=== PATIENT | female | born 1955 | race Caucasian/White ===

== ENCOUNTER → 2016-07-23 | Outpatient (CLI) | payer BC ==
[~2016-07-23] MED LIST: ATARAX,VISTARIL10 MG PO; CELEXA20 MG PO; COLACE100 MG PO; DIFLUCAN150 MG PO; ESTRACE0.5 MG PO; ESTRADIOL0.5 MG PO; FERROUS SULFATE1 GRA; FLEXERIL5 MG PO; IRON TABLETS325 MG PO; KEFLEX500 MG PO; MOTRIN800 MG PO; PRENATAL1 TA4 PO; PROTONIX40 MG PO; STOOL SOFTENER100 MG PO; TRAMADOL HCL50 MG PO; VITAMIN B PO; ZANTAC 300300 MG PO; ZANTAC150 MG PO
== END ==
LOC: RAD 14:43
DX: M25.462 Effusion, left knee (principal)

== ENCOUNTER → 2017-02-26 | Outpatient (CLI) | payer BC ==
--- NOTE | ~2017-02-26 | PF ---
[place], [place] PULMONARY FUNCTION TEST [id number] UNIT #: [id number] ROOM: DOCTOR: GIOVANNA MONROY MD BIRTHDATE: [birth year] DOS: 02/26/2017 ORDERED BY: Jessee Zamorano, nurse practitioner. HISTORY: The patient reported as 61-year-old female, height of 67 inches, weight of 172 pounds. The testing was done for assessment of symptoms of shortness of breath with productive cough. Tobacco use was noted 46 pack years of tobacco use for the patient. The patient smoked 2 packs of cigarettes per day, which were discontinued 20 years ago. SPIROMETRY: The FVC was recorded 3.00 liters at 81% predicted value normal. FEV1 recorded 2.40 liters at 84% predicted value normal as well. Ratio of FEV1/FVC recorded 80%. No postbronchodilator changes for this patient were noted, which is significant. Flow volume loop was noted normal. The patient's lung volume, thoracic gas for spirometry was noted normal. The patient's lung volume, thoracic gas volume recorded at 60%, residual volume 50%, total lung capacity of 83%. Lung volumes were noted normal. The patient's lung diffusion recorded normal at 74%. The patient's airway resistance and specific conductance was noted normal. FINAL IMPRESSION: Normal pulmonary function test was noted. GIOVANNA POWERS MD CM:PFREPORT:PULMONARY FUNCTION TEST [id number] GIOVANNA MAE MD
== END | disposition home or self-care (01) ==
LOC: CP 12:38
DX: R06.02 Shortness of breath (principal); R05 Cough; Z72.0 Tobacco use

== ENCOUNTER → 2017-04-12 | Outpatient (CLI) | payer BC | END | disposition home or self-care (01) | LOC: CARD 10:13 | DX: R06.02 Shortness of breath (principal) ==

== ENCOUNTER 2017-05-20 18:55 | Emergency (ER) | payer BC ==
[~2017-05-20] VITALS: Ht 162.5 cm; Wt 73.5 kg
[2017-05-20] MEDS ORDERED: AUGMENTIN 875875 MG PO (19:43)
== END 2017-05-20 19:53 | disposition home or self-care (01) ==
LOC: ED 18:55
DX: S01.511A Laceration without foreign body of lip, initial encounter (principal); Z79.899 Other long term (current) drug therapy; W54.0XXA Bitten by dog, initial encounter; Y93.89 Activity, other specified; Y92.89 Other specified places as the place of occurrence of the external cause; Y99.8 Other external cause status

== ENCOUNTER 2017-05-31 17:00 | Emergency (ER) | payer OTHER, BC ==
[~2017-05-31] VITALS: Wt 77.1 kg
[~2017-05-31 17:00] MED LIST changes: +AUGMENTIN 875875 MG PO
== END 2017-05-31 19:16 | disposition home or self-care (01) ==
LOC: ED 17:00
DX: Z23 Encounter for immunization (principal); J02.9 Acute pharyngitis, unspecified; Z90.49 Acquired absence of other specified parts of digestive tract; Z90.710 Acquired absence of both cervix and uterus; Z98.890 Other specified postprocedural states; Z79.899 Other long term (current) drug therapy; Z88.6 Allergy status to analgesic agent

== ENCOUNTER 2017-06-03 18:37 | Emergency (ER) | payer OTHER, BC ==
[~2017-06-03] VITALS: Ht 160 cm; Wt 77.1 kg
== END 2017-06-03 19:08 | disposition home or self-care (01) ==
LOC: ED 18:37
DX: Z23 Encounter for immunization (principal); Z79.899 Other long term (current) drug therapy; Z90.49 Acquired absence of other specified parts of digestive tract; Z90.710 Acquired absence of both cervix and uterus; Z98.890 Other specified postprocedural states; Z88.6 Allergy status to analgesic agent

== ENCOUNTER 2017-06-07 19:08 | Emergency (ER) | payer OTHER, BC ==
[~2017-06-07] VITALS: Ht 165.1 cm; Wt 77.1 kg
== END 2017-06-07 19:31 | disposition home or self-care (01) ==
LOC: ED 19:08
DX: Z23 Encounter for immunization (principal); Z90.49 Acquired absence of other specified parts of digestive tract; Z90.710 Acquired absence of both cervix and uterus; Z98.890 Other specified postprocedural states; Z79.899 Other long term (current) drug therapy; Z88.6 Allergy status to analgesic agent

== ENCOUNTER 2017-06-14 20:52 | Emergency (ER) | payer OTHER, BC ==
[~2017-06-14] VITALS: Ht 165.1 cm; Wt 77.1 kg
== END 2017-06-14 21:00 | disposition home or self-care (01) ==
LOC: ED 20:52
DX: Z23 Encounter for immunization (principal); Z90.49 Acquired absence of other specified parts of digestive tract; Z90.710 Acquired absence of both cervix and uterus; Z79.899 Other long term (current) drug therapy; Z88.6 Allergy status to analgesic agent

== ENCOUNTER → 2018-04-16 | Outpatient (CLI) | payer OTHER ==
[2018-04-16 15:59] LABS: PTH INTACT 51.6 pg/mL (18.5-88.0); VITAMIN D, 25-HYDROXY 22.5 ng/mL (30-100)
== END | disposition home or self-care (01) ==
LOC: LAB 12:51 → US 13:00
PROVIDERS: Nurse Practitioner Family
DX: I65.23 Occlusion and stenosis of bilateral carotid arteries (principal); E78.5 Hyperlipidemia, unspecified; K21.9 Gastro-esophageal reflux disease without esophagitis; E83.51 Hypocalcemia; F32.9 Major depressive disorder, single episode, unspecified; E11.9 Type 2 diabetes mellitus without complications; R41.3 Other amnesia

== ENCOUNTER → 2018-06-12 | Outpatient (CLI) | payer OTHER ==
[~2018-06-12] MED LIST changes: +B-121000 MCG PO; +B121000 MCG/1 PO; +BIOTIN1000 MC1 PO; +CETIRIZINE10 MG PO; +DOXYCYCLINE100 M3 PO; +GINKGO60 MG PO; +LEVOFLOXACIN500 MG PO; +OMEPRAZOLE D/R20 MG PO; +TESSALON PERLE100 MG PO; +ZOCOR10 MG PO
== END | disposition home or self-care (01) ==
LOC: MAMMO 10:40
DX: Z12.31 Encounter for screening mammogram for malignant neoplasm of breast (principal); Z12.12 Encounter for screening for malignant neoplasm of rectum; R94.8 Abnormal results of function studies of other organs and systems; G89.29 Other chronic pain; M25.511 Pain in right shoulder; Z87.891 Personal history of nicotine dependence

== ENCOUNTER → 2018-11-04 | Outpatient (CLI) | payer OTHER | END | disposition home or self-care (01) | LOC: RAD 19:19 | DX: J40 Bronchitis, not specified as acute or chronic (principal); R06.2 Wheezing; R49.0 Dysphonia ==

== ENCOUNTER → 2018-12-24 | Outpatient (CLI) | payer OTHER | END | disposition home or self-care (01) | LOC: RAD 19:06 | DX: K62.5 Hemorrhage of anus and rectum (principal); K59.00 Constipation, unspecified; Z90.49 Acquired absence of other specified parts of digestive tract; Z90.710 Acquired absence of both cervix and uterus ==

== ENCOUNTER 2019-03-07 11:28 | Emergency (ER) | payer OTHER ==
[~2019-03-07] VITALS: Ht 165.1 cm; Wt 72.6 kg
== END 2019-03-07 14:26 | disposition home or self-care (01) ==
LOC: ED 11:28
DX: S00.83XA Contusion of other part of head, initial encounter (principal); M79.642 Pain in left hand; Z88.8 Allergy status to other drugs, medicaments and biological substances; Z79.2 Long term (current) use of antibiotics; Z79.899 Other long term (current) drug therapy; Z90.710 Acquired absence of both cervix and uterus; Z90.49 Acquired absence of other specified parts of digestive tract; W18.39XA Other fall on same level, initial encounter; Y93.89 Activity, other specified; Y92.098 Other place in other non-institutional residence as the place of occurrence of the external cause; Y99.8 Other external cause status

== ENCOUNTER → 2019-09-29 | Outpatient (CLI) | payer OTHER | END | disposition home or self-care (01) | LOC: RAD 08:45 | DX: M47.817 Spondylosis without myelopathy or radiculopathy, lumbosacral region (principal); M85.88 Other specified disorders of bone density and structure, other site ==

== ENCOUNTER 2021-05-13 19:10 | Emergency (ER) | payer OTHER ==
[2021-05-13] MEDS ORDERED: NAPROXEN250 MG PO (20:14)
[2021-05-13] MEDS ORDERED: METHOCARBAMOL750 M1 PO (20:14)
== END 2021-05-13 20:31 | disposition home or self-care (01) ==
LOC: ED 19:10
DX: S29.011A Strain of muscle and tendon of front wall of thorax, initial encounter (principal); Z88.8 Allergy status to other drugs, medicaments and biological substances; Z79.899 Other long term (current) drug therapy; Z90.49 Acquired absence of other specified parts of digestive tract; Z90.89 Acquired absence of other organs; Z90.710 Acquired absence of both cervix and uterus; X50.0XXA Overexertion from strenuous movement or load, initial encounter; Y93.89 Activity, other specified; Y92.89 Other specified places as the place of occurrence of the external cause; Y99.8 Other external cause status

== ENCOUNTER → 2021-11-23 | Outpatient (CLI) | payer OTHER ==
[~2021-11-23] MED LIST changes: +METHOCARBAMOL750 M1 PO; +NAPROXEN250 MG PO
== END | disposition home or self-care (01) ==
LOC: MAMMO 11-02 11:00
PROVIDERS: ATTEND Nurse Practitioner Family
DX: Z12.31 Encounter for screening mammogram for malignant neoplasm of breast (principal); N64.9 Disorder of breast, unspecified

== ENCOUNTER 2021-12-08 17:00 | Emergency (ER) | payer OTHER ==
[~2021-12-08] VITALS: Ht 172.7 cm; Wt 73.9 kg
[2021-12-08] MEDS ORDERED: HYDROCODONE-AC1 EAC1 PO (21:26)
== END 2021-12-08 21:25 | disposition home or self-care (01) ==
LOC: ED 17:00
DX: S62.101A Fracture of unspecified carpal bone, right wrist, initial encounter for closed fracture (principal); S00.83XA Contusion of other part of head, initial encounter; Z88.8 Allergy status to other drugs, medicaments and biological substances; Z79.899 Other long term (current) drug therapy; Z90.710 Acquired absence of both cervix and uterus; Z90.49 Acquired absence of other specified parts of digestive tract; Z90.89 Acquired absence of other organs; Z98.890 Other specified postprocedural states; W18.39XA Other fall on same level, initial encounter; Y93.89 Activity, other specified; Y92.89 Other specified places as the place of occurrence of the external cause; Y99.8 Other external cause status

== ENCOUNTER → 2021-12-22 | Outpatient (CLI) | payer OTHER ==
[~2021-12-22] MED LIST changes: +HYDROCODONE-AC1 EAC1 PO
== END | disposition home or self-care (01) ==
LOC: ORTHO 01:07
PROVIDERS: ATTEND Orthopaedic Surgery
DX: S52.531D Colles' fracture of right radius, subsequent encounter for closed fracture with routine healing (principal); X58.XXXD Exposure to other specified factors, subsequent encounter

== ENCOUNTER → 2021-12-29 | Outpatient (CLI) | payer OTHER | END | disposition home or self-care (01) | LOC: ORTHO 01:07 | PROVIDERS: ATTEND Orthopaedic Surgery | DX: S52.531D Colles' fracture of right radius, subsequent encounter for closed fracture with routine healing (principal); X58.XXXD Exposure to other specified factors, subsequent encounter ==

== ENCOUNTER → 2022-01-08 | Outpatient (CLI) | payer OTHER | END | disposition home or self-care (01) | LOC: RAD 01-01 13:30 | PROVIDERS: ATTEND Orthopaedic Surgery | DX: S52.531D Colles' fracture of right radius, subsequent encounter for closed fracture with routine healing (principal); M85.851 Other specified disorders of bone density and structure, right thigh; M81.0 Age-related osteoporosis without current pathological fracture; X58.XXXD Exposure to other specified factors, subsequent encounter ==

== ENCOUNTER → 2022-01-22 | Outpatient (CLI) | payer OTHER | END | disposition home or self-care (01) | LOC: ORTHO 13:25 | PROVIDERS: ATTEND Orthopaedic Surgery | DX: S52.531D Colles' fracture of right radius, subsequent encounter for closed fracture with routine healing (principal); M19.031 Primary osteoarthritis, right wrist; X58.XXXD Exposure to other specified factors, subsequent encounter ==

== ENCOUNTER → 2022-04-27 | Outpatient (CLI) | payer OTHER ==
[2022-04-27 10:54] LABS: BASO # 0.1 10*3/uL (0.0-0.1); BASO % 0.9 % (0.0-1.0); EOS # 0.3 10*3/uL (0.0-0.4); EOS % 4.6 % (1.0-4.0); HEMATOCRIT 42.7 % (37.0-47.0); LYMPH # 1.5 10*3/uL (1.3-4.4); MEAN CELL VOLUME 92.4 fl (81.0-99.0); MEAN CORPUSCULAR HGB 30.5 pg (27.0-31.0); MONO # 0.7 10*3/uL (0.1-1.0); MONO % 12.1 % (3.0-9.0); NEUT # 3.1 10*3/uL (2.3-7.9); NEUT % 55.2 % (47.0-73.0); PLATELET COUNT AUTOMATED 264 10*3/uL (130-400); RED BLOOD COUNT 4.62 10*6/uL (4.10-5.10); RED CELL DISTRI WIDTH 12.8 % (0-14.5); WHITE BLOOD COUNT 5.6 10*3/uL (4.8-10.8)
[2022-04-27 11:09] LABS: ALKALINE PHOSPHATASE 78 U/L (46-116); BUN 6 mg/dl (9-23); CHLORIDE 103 mmol/L (98-107); CHOLESTEROL 207 mg/dL (<200); LDL CHOLESTEROL 121 mg/dL (9-159); POTASSIUM 3.9 mmol/L (3.4-5.1); SGPT/ALT 17 U/L (10-49); TOTAL PROTEIN 6.5 gm/dL (6.0-8.0); TRIGLYCERIDES 75 mg/dl (<150)
== END | disposition home or self-care (01) ==
LOC: LAB 09:56
PROVIDERS: ATTEND Nurse Practitioner Family
DX: E78.5 Hyperlipidemia, unspecified (principal); G89.29 Other chronic pain; K21.9 Gastro-esophageal reflux disease without esophagitis; M79.2 Neuralgia and neuritis, unspecified; Z79.899 Other long term (current) drug therapy

== ENCOUNTER → 2022-07-23 | Outpatient (CLI) | payer OTHER ==
[2022-07-23 10:50] LABS: BASO # 0.1 10*3/uL (0.0-0.1); EOS # 0.2 10*3/uL (0.0-0.4); EOS % 4.1 % (1.0-4.0); HEMATOCRIT 42.2 % (37.0-47.0); LYMPH # 1.7 10*3/uL (1.3-4.4); LYMPH % 29.4 % (27.0-41.0); MEAN CELL VOLUME 94.2 fl (81.0-99.0); MEAN CORPUSCULAR HGB 30.4 pg (27.0-31.0); MEAN CORPUSCULAR HGB CONC 32.2 g/dl (33.0-37.0); MEAN PLATELET VOLUME 9.9 fl (9.6-12.3); MONO # 0.8 10*3/uL (0.1-1.0); MONO % 13.4 % (3.0-9.0); NEUT # 3.1 10*3/uL (2.3-7.9); NEUT % 51.8 % (47.0-73.0); PLATELET COUNT AUTOMATED 296 10*3/uL (130-400); RED BLOOD COUNT 4.48 10*6/uL (4.10-5.10); RED CELL DISTRI WIDTH 12.3 % (0-14.5); WHITE BLOOD COUNT 5.9 10*3/uL (4.8-10.8)
[2022-07-23 12:11] LABS: ALKALINE PHOSPHATASE 78 U/L (46-116); CHLORIDE 106 mmol/L (98-107); CHOLESTEROL 186 mg/dL (<200); LDL CHOLESTEROL 94 mg/dL (9-159); POTASSIUM 3.9 mmol/L (3.4-5.1); SGPT/ALT 13 U/L (10-49); TOTAL PROTEIN 6.5 gm/dL (6.0-8.0); TRIGLYCERIDES 134 mg/dl (<150)
[2022-07-23 12:12] LABS: BUN < 5 mg/dl (9-23)
== END | disposition home or self-care (01) ==
LOC: LAB 10:20
PROVIDERS: ATTEND Nurse Practitioner Family
DX: E78.5 Hyperlipidemia, unspecified (principal); K21.9 Gastro-esophageal reflux disease without esophagitis; M79.2 Neuralgia and neuritis, unspecified; F32.9 Major depressive disorder, single episode, unspecified; D64.9 Anemia, unspecified; E55.9 Vitamin D deficiency, unspecified; G89.29 Other chronic pain

== ENCOUNTER 2022-09-26 01:47 | Emergency (ER) | payer OTHER ==
[~2022-09-26] VITALS: Wt 74.4 kg
== END 2022-09-26 04:20 | disposition home or self-care (01) ==
LOC: ED 01:47
DX: S00.03XA Contusion of scalp, initial encounter (principal); S09.90XA Unspecified injury of head, initial encounter; K21.9 Gastro-esophageal reflux disease without esophagitis; J45.909 Unspecified asthma, uncomplicated; F32.A Depression, unspecified; E78.5 Hyperlipidemia, unspecified; Z88.5 Allergy status to narcotic agent; Z90.710 Acquired absence of both cervix and uterus; Z90.49 Acquired absence of other specified parts of digestive tract; Z90.89 Acquired absence of other organs; Z98.890 Other specified postprocedural states; W22.8XXA Striking against or struck by other objects, initial encounter; Y93.89 Activity, other specified; Y92.009 Unspecified place in unspecified non-institutional (private) residence as the place of occurrence of the external cause; Y99.8 Other external cause status

== ENCOUNTER 2022-10-23 20:10 | Emergency (ER) | payer OTHER ==
[~2022-10-23] VITALS: Ht 167.6 cm; Wt 72.6 kg
[2022-10-23 21:11] LABS: BILIRUBIN Negative (Negative); BLOOD Negative (Negative); CLARITY Clear (Clear); COLOR Yellow (Yellow); GLUCOSE Negative (Negative); KETONE Negative (Negative); LEUKO ESTERASE Negative (Negative); NITRITE Negative (Negative); PH 5.5 (4.5-8.0); SPECIFIC GRAVITY <= 1.005 (1.001-1.030); UROBILINOGEN 0.2 E.U./dl (0.0-1.0)
[2022-10-23 21:24] LABS: BACTERIA TRACE; EPITHELIAL CELLS 0-2; RBC 0-2 rbc/hpf (0-2); WBC 0-2 wbc/hpf (0-5)
[2022-10-23 21:29] LABS: BASO % 0.6 % (0.0-1.0); EOS # 0.3 10*3/uL (0.0-0.4); EOS % 3.9 % (1.0-4.0); HEMATOCRIT 40.8 % (37.0-47.0); LYMPH # 2.3 10*3/uL (1.3-4.4); LYMPH % 35.1 % (27.0-41.0); MEAN CELL VOLUME 93.2 fl (81.0-99.0); MEAN CORPUSCULAR HGB 30.8 pg (27.0-31.0); MEAN CORPUSCULAR HGB CONC 33.1 g/dl (33.0-37.0); MEAN PLATELET VOLUME 10.5 fl (9.6-12.3); MONO # 0.7 10*3/uL (0.1-1.0); MONO % 10.8 % (3.0-9.0); NEUT # 3.3 10*3/uL (2.3-7.9); NEUT % 49.4 % (47.0-73.0); PLATELET COUNT AUTOMATED 266 10*3/uL (130-400); RED BLOOD COUNT 4.38 10*6/uL (4.10-5.10); RED CELL DISTRI WIDTH 12.2 % (0-14.5); WHITE BLOOD COUNT 6.7 10*3/uL (4.8-10.8)
[2022-10-23 21:52] LABS: ALKALINE PHOSPHATASE 81 U/L (46-116); BUN 6 mg/dl (9-23); CHLORIDE 103 mmol/L (98-107); LIPASE 45 U/L (12-53); POTASSIUM 3.3 mmol/L (3.4-5.1); SGPT/ALT 13 U/L (10-49); TOTAL PROTEIN 6.3 gm/dL (6.0-8.0)
== END 2022-10-24 01:24 | disposition left against medical advice (07) ==
LOC: ED 20:10
PROVIDERS: Physician Assistant Medical
DX: R10.31 Right lower quadrant pain (principal); K21.9 Gastro-esophageal reflux disease without esophagitis; F32.A Depression, unspecified; Z88.8 Allergy status to other drugs, medicaments and biological substances; Z90.710 Acquired absence of both cervix and uterus; Z90.49 Acquired absence of other specified parts of digestive tract; Z90.89 Acquired absence of other organs; Z98.890 Other specified postprocedural states

== ENCOUNTER 2022-11-03 11:22 | Emergency (ER) | payer MEDICARE, OTHER ==
[~2022-11-03] VITALS: Ht 162.5 cm; Wt 72.6 kg
[2022-11-03] MEDS ORDERED: GABAPENTIN100 M2 PO (11:37)
== END 2022-11-03 12:38 | disposition home or self-care (01) ==
LOC: ED 11:22
DX: L23.7 Allergic contact dermatitis due to plants, except food (principal); K21.9 Gastro-esophageal reflux disease without esophagitis; F32.A Depression, unspecified; Z88.8 Allergy status to other drugs, medicaments and biological substances; Z90.89 Acquired absence of other organs; Z90.49 Acquired absence of other specified parts of digestive tract; Z90.710 Acquired absence of both cervix and uterus; Z98.890 Other specified postprocedural states

== ENCOUNTER → 2022-12-19 | Outpatient (CLI) | payer MEDICARE ==
[~2022-12-19] MED LIST changes: +GABAPENTIN100 M2 PO
[2022-12-19 17:34] LABS: BASO % 0.7 % (0.0-1.0); EOS # 0.2 10*3/uL (0.0-0.4); EOS % 3.3 % (1.0-4.0); HEMATOCRIT 40.7 % (37.0-47.0); LYMPH # 1.9 10*3/uL (1.3-4.4); LYMPH % 34.7 % (27.0-41.0); MEAN CORPUSCULAR HGB 30.5 pg (27.0-31.0); MEAN CORPUSCULAR HGB CONC 32.4 g/dl (33.0-37.0); MEAN PLATELET VOLUME 10.2 fl (9.6-12.3); MONO # 0.6 10*3/uL (0.1-1.0); NEUT # 2.8 10*3/uL (2.3-7.9); NEUT % 50.1 % (47.0-73.0); PLATELET COUNT AUTOMATED 264 10*3/uL (130-400); RED BLOOD COUNT 4.33 10*6/uL (4.10-5.10); RED CELL DISTRI WIDTH 12.4 % (0-14.5); WHITE BLOOD COUNT 5.5 10*3/uL (4.8-10.8)
[2022-12-19 18:08] LABS: ALKALINE PHOSPHATASE 77 U/L (46-116); BUN 5 mg/dl (9-23); CHLORIDE 109 mmol/L (98-107); CHOLESTEROL 188 mg/dL (<200); LDL CHOLESTEROL 86 mg/dL (9-159); POTASSIUM 3.9 mmol/L (3.4-5.1); SGPT/ALT 12 U/L (10-49); TRIGLYCERIDES 199 mg/dl (<150)
== END | disposition home or self-care (01) ==
LOC: LAB 17:14
PROVIDERS: ATTEND Nurse Practitioner Family
DX: E78.5 Hyperlipidemia, unspecified (principal); K21.9 Gastro-esophageal reflux disease without esophagitis; M79.2 Neuralgia and neuritis, unspecified; G89.29 Other chronic pain; E55.9 Vitamin D deficiency, unspecified; F32.9 Major depressive disorder, single episode, unspecified

== ENCOUNTER → 2023-05-17 | Outpatient (CLI) | payer OTHER ==
[2023-05-17 16:37] LABS: BASO # 0.1 10*3/uL (0.0-0.1); BASO % 0.8 % (0.0-1.0); EOS # 0.3 10*3/uL (0.0-0.4); EOS % 4.6 % (1.0-4.0); HEMATOCRIT 43.1 % (37.0-47.0); LYMPH # 2.1 10*3/uL (1.3-4.4); LYMPH % 32.8 % (27.0-41.0); MEAN CORPUSCULAR HGB 30.1 pg (27.0-31.0); MEAN CORPUSCULAR HGB CONC 31.3 g/dl (33.0-37.0); MEAN PLATELET VOLUME 10.1 fl (9.6-12.3); MONO # 0.7 10*3/uL (0.1-1.0); MONO % 10.8 % (3.0-9.0); NEUT # 3.2 10*3/uL (2.3-7.9); NEUT % 50.8 % (47.0-73.0); PLATELET COUNT AUTOMATED 292 10*3/uL (130-400); RED BLOOD COUNT 4.49 10*6/uL (4.10-5.10); RED CELL DISTRI WIDTH 12.5 % (0-14.5); WHITE BLOOD COUNT 6.3 10*3/uL (4.8-10.8)
[2023-05-17 17:02] LABS: ALKALINE PHOSPHATASE 83 U/L (46-116); BUN 5 mg/dl (9-23); CHLORIDE 106 mmol/L (98-107); CHOLESTEROL 205 mg/dL (<200); LDL CHOLESTEROL 107 mg/dL (9-159); POTASSIUM 3.4 mmol/L (3.4-5.1); SGPT/ALT 12 U/L (5-49); TOTAL PROTEIN 6.6 gm/dL (6.0-8.0); TRIGLYCERIDES 172 mg/dl (<150)
== END | disposition home or self-care (01) ==
LOC: LAB 16:22
PROVIDERS: ATTEND Nurse Practitioner Family
DX: E78.5 Hyperlipidemia, unspecified (principal); E55.9 Vitamin D deficiency, unspecified; K21.9 Gastro-esophageal reflux disease without esophagitis; G89.29 Other chronic pain; F32.9 Major depressive disorder, single episode, unspecified

== ENCOUNTER → 2023-09-02 | Outpatient (CLI) | payer OTHER ==
[2023-09-02 12:48] LABS: BASO # 0.1 10*3/uL (0.0-0.1); BASO % 0.9 % (0.0-1.0); EOS # 0.2 10*3/uL (0.0-0.4); EOS % 3.3 % (1.0-4.0); HEMATOCRIT 41.9 % (37.0-47.0); LYMPH # 1.9 10*3/uL (1.3-4.4); LYMPH % 32.6 % (27.0-41.0); MEAN CELL VOLUME 94.4 fl (81.0-99.0); MEAN CORPUSCULAR HGB 30.4 pg (27.0-31.0); MEAN CORPUSCULAR HGB CONC 32.2 g/dl (33.0-37.0); MEAN PLATELET VOLUME 10.3 fl (9.6-12.3); MONO # 0.7 10*3/uL (0.1-1.0); MONO % 11.5 % (3.0-9.0); NEUT % 51.4 % (47.0-73.0); PLATELET COUNT AUTOMATED 275 10*3/uL (130-400); RED BLOOD COUNT 4.44 10*6/uL (4.10-5.10); RED CELL DISTRI WIDTH 12.4 % (0-14.5); WHITE BLOOD COUNT 5.7 10*3/uL (4.8-10.8)
[2023-09-02 13:18] LABS: ALKALINE PHOSPHATASE 79 U/L (46-116); BUN 6 mg/dl (9-23); CHLORIDE 105 mmol/L (98-107); CHOLESTEROL 219 mg/dL (<200); LDL CHOLESTEROL 124 mg/dL (9-159); POTASSIUM 3.7 mmol/L (3.4-5.1); SGPT/ALT 13 U/L (5-49); TOTAL PROTEIN 6.4 gm/dL (6.0-8.0); TRIGLYCERIDES 91 mg/dl (<150)
== END | disposition home or self-care (01) ==
LOC: LAB 11:59
PROVIDERS: ATTEND Nurse Practitioner Family
DX: K21.9 Gastro-esophageal reflux disease without esophagitis (principal); E78.5 Hyperlipidemia, unspecified; R41.3 Other amnesia

== ENCOUNTER → 2023-12-05 | Outpatient (CLI) | payer OTHER, MEDICAID ==
[2023-12-05 11:14] LABS: HEMATOCRIT 41.7 % (37.0-47.0); MEAN CELL VOLUME 92.7 fl (81.0-99.0); MEAN CORPUSCULAR HGB 30.2 pg (27.0-31.0); MEAN CORPUSCULAR HGB CONC 32.6 g/dl (33.0-37.0); WHITE BLOOD COUNT 5.7 10*3/uL (4.8-10.8)
[2023-12-05 11:15] LABS: BASO # 0.1 10*3/uL (0.0-0.1); BASO % 0.9 % (0.0-1.0); EOS # 0.2 10*3/uL (0.0-0.4); EOS % 3.7 % (1.0-4.0); LYMPH # 1.4 10*3/uL (1.3-4.4); LYMPH % 25.2 % (27.0-41.0); MEAN PLATELET VOLUME 10.7 fl (9.6-12.3); MONO # 0.6 10*3/uL (0.1-1.0); MONO % 11.3 % (3.0-9.0); NEUT # 3.3 10*3/uL (2.3-7.9); NEUT % 58.5 % (47.0-73.0); PLATELET COUNT AUTOMATED 267 10*3/uL (130-400); RED CELL DISTRI WIDTH 12.4 % (0-14.5)
[2023-12-05 11:43] LABS: ALKALINE PHOSPHATASE 76 U/L (46-116); BUN 6 mg/dl (9-23); CHLORIDE 106 mmol/L (98-107); CHOLESTEROL 203 mg/dL (<200); LDL CHOLESTEROL 107 mg/dL (9-159); POTASSIUM 3.5 mmol/L (3.4-5.1); SGPT/ALT 10 U/L (5-49); TOTAL PROTEIN 6.3 gm/dL (6.0-8.0); TRIGLYCERIDES 88 mg/dl (<150)
[2023-12-05 11:54] LABS: BILIRUBIN Negative (Negative); BLOOD Negative (Negative); CLARITY Clear (Clear); COLOR Yellow (Yellow); GLUCOSE Negative (Negative); KETONE Negative (Negative); LEUKO ESTERASE Negative (Negative); NITRITE Negative (Negative); PH 5.5 (4.5-8.0); UROBILINOGEN 0.2 E.U./dl (0.0-1.0)
[2023-12-05 12:23] LABS: HYALINE CAST TNTC; RBC 0-2 rbc/hpf (0-2); WBC 0-2 wbc/hpf (0-5)
== END | disposition home or self-care (01) ==
LOC: LAB 10:26
PROVIDERS: ATTEND Nurse Practitioner Family
DX: K21.9 Gastro-esophageal reflux disease without esophagitis (principal); E87.6 Hypokalemia; F32.9 Major depressive disorder, single episode, unspecified; M54.16 Radiculopathy, lumbar region; R63.4 Abnormal weight loss; K22.2 Esophageal obstruction; Z79.899 Other long term (current) drug therapy

== ENCOUNTER → 2023-12-31 | Outpatient (CLI) | payer OTHER, MEDICAID | END | disposition home or self-care (01) | LOC: RAD 10:28 | PROVIDERS: ATTEND Nurse Practitioner Family | DX: K59.00 Constipation, unspecified (principal) ==

== ENCOUNTER → 2024-01-29 | Outpatient (CLI) | payer OTHER, MEDICAID | END | disposition home or self-care (01) | LOC: LAB 13:51 | PROVIDERS: ATTEND Nurse Practitioner Family | DX: E61.1 Iron deficiency (principal); K59.00 Constipation, unspecified ==

== ENCOUNTER → 2024-04-03 | Outpatient (CLI) | payer MEDICARE, MEDICAID | END | disposition home or self-care (01) | LOC: RAD 00:23 | PROVIDERS: ATTEND Internal Medicine | DX: Z13.820 Encounter for screening for osteoporosis (principal); M85.88 Other specified disorders of bone density and structure, other site; Z78.0 Asymptomatic menopausal state ==

== ENCOUNTER → 2024-10-12 | Outpatient (CLI) | payer OTHER | END | disposition home or self-care (01) | LOC: RAD 11:52 | PROVIDERS: ATTEND Internal Medicine | DX: M47.816 Spondylosis without myelopathy or radiculopathy, lumbar region (principal); M54.50 Low back pain, unspecified ==